=== PATIENT | male | born 2000 | race Caucasian/White ===

== ENCOUNTER 2023-09-12 15:06 | Emergency (ER) | payer SELFPAY ==
[2023-09-12] MEDS: Fluorescein 1 MG Ophth Strip EYEBOTH ONE (15:57)
[2023-09-12] MEDS: Proparacaine 0.5% Ophth Soln 15 ML Bottle EYELF STA (15:57)
[2023-09-12] MEDS: Erythromycin Base 0.5% Ophth Oint 1 GM Tube EYELF ONE (17:02)
[2023-09-12] MEDS: Ketorolac 60 MG/2 ML SDV IM ONE (17:03)
== END 2023-09-12 17:22 | disposition home or self-care (01) ==
LOC: JD.ED 15:06
DX: H01.00B Unspecified blepharitis left eye, upper and lower eyelids (principal); Z86.16 Personal history of COVID-19
CPT/HCPCS: 96372; 99283; A9270; J1885; J3490